=== PATIENT | male | born 1995 | race Caucasian/White ===

== ENCOUNTER 2019-08-05 02:24 | Emergency (ER) | payer OTHER ==
[~2019-08-05] VITALS: Ht 165.1 cm; Wt 62.6 kg
[2019-08-05 02:25] VITALS: BP 145/89
--- NOTE | 2019-08-05 02:25 | NUR ---
TO BED # 11 AMBULATORY
--- NOTE | 2019-08-05 02:45 | NUR ---
PT C/O ANXIETY AFTER DRINK COFFEE AND TAKING NYQUIL. PT STATES HE WAS BREATHING RAPID AND FEELS WEIRD. PT APPEARS TO BE IN NO DISTRESS AT THIS TIME. WAITING FOR DR TO SEE PT. PT ABLE TO SPEAK FULL SENTENCES. PT APPEARS TO HAVE NORMAL RESPIRATIONS. DENIES N/V/D; SKIN IS PINK/WARM/DRY; AAOX4 WITH EVEN AND STEADY GAIT; LUNGS CLEAR BL; HR EVEN AND REGULAR; PT DENIES ANY FEVER, CP, SOB, OR COUGH AT THIS TIME; PATIENT STATES PAIN OF 0/10 AT THIS TIME; VSS; PATIENT POSITIONED FOR COMFORT; HOB ELEVATED; BEDRAILS UP X2; BED DOWN. ER MD MADE AWARE OF PT STATUS.
--- NOTE | 2019-08-05 03:38 | NUR ---
Patient discharged with v/s stable. Written and verbal after care instructions given and explained. Patient verbalized understanding. Ambulatory with FRIEND. All questions addressed prior to discharge. Advised to follow up with PMD.
[2019-08-05 03:40] VITALS: BP 145/89
== END 2019-08-05 03:40 | disposition home or self-care (01) ==
LOC: MED 02:24
DX: R03.0 Elevated blood-pressure reading, without diagnosis of hypertension (principal); R06.02 Shortness of breath; R11.2 Nausea with vomiting, unspecified
CPT/HCPCS: 99281